=== PATIENT | female | born 1950 | race Caucasian/White ===

== ENCOUNTER → 2018-02-17 | Outpatient (CLI) | payer BC | END | disposition home or self-care (01) | LOC: CVU 08:03 | PROVIDERS: ATTEND Nurse Practitioner Family | DX: I07.1 Rheumatic tricuspid insufficiency (principal); I34.1 Nonrheumatic mitral (valve) prolapse | CPT/HCPCS: 93306 ==

== ENCOUNTER 2018-03-15 06:49 | Observation (INO) | payer BC ==
[~2018-03-15] VITALS: Ht 180.3 cm; Wt 80.6 kg
[2018-03-15] MEDS ORDERED: SODIUM CHLORIDE 0.9% 1,000 ML IV SCH (07:15)
[2018-03-15 07:24] VITALS: BP 139/84
[2018-03-15] MEDS ORDERED: CHOL2000 PO (07:33)
[2018-03-15 07:59] LABS: ALANINE AMINOTRANSFERASE 20 U/L (12-78); ALBUMIN 3.9 g/dL (3.4-5.0); ANION GAP 5 mmol/L (5-15); CALCIUM 9.2 mg/dL (8.5-10.1); CHLORIDE 109 mmol/L (98-107); CREATININE 0.74 mg/dL (0.55-1.02)
[2018-03-15 08:02] LABS: ALKALINE PHOSPHATASE 91 U/L (45-117); BILIRUBIN,TOTAL 0.4 mg/dL (0.2-1.0); TOTAL PROTEIN 7.5 g/dL (6.4-8.2)
[2018-03-15] MEDS ORDERED: MIDAZOLAM 1 MG/ML, 2ML ONE (09:45)
[2018-03-15] MEDS ORDERED: FENTANYL PF 100 MCG/2ML ONE (09:46)
[2018-03-15] MEDS ORDERED: MIDAZOLAM 1 MG/ML, 5ML ONE ×2 (10:16→10:39)
[2018-03-15] MEDS ORDERED: HEPARIN 1,000 UNITS/ML, 10ML ONE (10:31)
[2018-03-15] MEDS ORDERED: FENTANYL PF 250 MCG/5ML ONE (10:39)
[2018-03-15] MEDS ORDERED: DEXAMETHASONE 4 MG/ML, 1ML ONE (11:50)
[2018-03-15] MEDS ORDERED: ONDANSETRON 2MG/ML, 2ML ONE (11:50)
[2018-03-15] MEDS ORDERED: PROPOFOL 10 MG/ML, 50ML ONE (11:50)
[2018-03-15] MEDS ORDERED: ISOPROTERENOL 0.2MG/ML, 1ML ONE (11:50)
[2018-03-15] MEDS ORDERED: PHENYLEPHRINE 10 MG/ML ONE (11:50)
[2018-03-15] MEDS ORDERED: PROPOFOL 10 MG/ML, 20ML ONE (11:50)
[2018-03-15] MEDS ORDERED: ADENOSINE 6 MG/2 ML ONE (13:29)
[2018-03-15] MEDS ORDERED: PROTAMINE SULFATE 10 MG/ML, 5ML ONE (15:36)
[2018-03-15] MEDS ORDERED: APIXABAN 5 MG TABLET ONE (16:00)
[2018-03-15] MEDS ORDERED: ACETAMINOPHEN 325 MG TABLET PO PRN ×2 (16:00→16:30)
[2018-03-15] MEDS ORDERED: ONDANSETRON 2MG/ML, 2ML IVPush PRN (16:00)
[2018-03-15] MEDS ORDERED: APIXABAN 5 MG TABLET PO ONE (16:00)
[2018-03-15] MEDS ORDERED: DIPHENHYDRAMINE 50 MG/ML, 1ML IVPush PRN (16:30)
[2018-03-15] MEDS ORDERED: MEPERIDINE/PF 25MG/0.5ML IVPush PRN (16:30)
[2018-03-15] MEDS ORDERED: PROMETHAZINE 25 MG SUPP PR PRN (16:30)
[2018-03-15] MEDS ORDERED: FENTANYL PF 100 MCG/2ML IV PRN (16:30)
[2018-03-15] MEDS ORDERED: MIDAZOLAM 1 MG/ML, 2ML IV PRN (16:30)
[2018-03-15] MEDS ORDERED: MORPHINE SULFATE 4 MG/ML, 1ML IVPush PRN (16:30)
[2018-03-15] MEDS ORDERED: OXYcodone 5 MG/5 ML ORAL.SOL UDC PO PRN (16:30)
[2018-03-15] MEDS ORDERED: PROMETHAZINE 25 MG/ML, 1ML IV PRN (16:30)
[2018-03-15] MEDS ORDERED: ONDANSETRON ODT 8 MG PO PRN (16:30)
[2018-03-15] MEDS ORDERED: EPHEDRINE 50 MG/ML, 1ML IM PRN (16:30)
[2018-03-15] MEDS ORDERED: PROMETHAZINE 12.5 MG SUPP PR PRN (16:30)
[2018-03-15] MEDS ORDERED: ONDANSETRON 2MG/ML, 2ML IV PRN (16:30)
[2018-03-15 20:25] VITALS: BP 88/60
[2018-03-15] MEDS: METOPROLOL TARTRATE 25 MG TABLET PO SCH (21:00)
[2018-03-15] MEDS: APIXABAN 5 MG TABLET PO SCH (21:00)
[2018-03-15 23:16] VITALS: BP 93/70
[2018-03-16 01:36] VITALS: BP 88/60
[2018-03-16 01:37] VITALS: BP 94/62
[2018-03-16 04:52] LABS: ANION GAP 6 mmol/L (5-15); CALCIUM 7.9 mg/dL (8.5-10.1); CHLORIDE 112 mmol/L (98-107); CHOLESTEROL, TOTAL 132 mg/dL (140-239); CREATININE 0.73 mg/dL (0.55-1.02)
[2018-03-16 05:02] LABS: CHOL/HDL RATIO 2.4; FREE T4 (FREE THYROXINE) 1.08 ng/dL (0.76-1.46); HDL CHOL % 42 % (28-40); HDL CHOLESTEROL (DIRECT) 55 mg/dL (40-60); LDL CHOLESTEROL,CALCULATED 65 mg/dL (54-169); LDL/HDL RATIO 1.2 (0.5-3.0); THYROID STIMULATING HORMONE 0.597 mIU/L (0.358-3.740); TRIGLYCERIDES 59 mg/dL (50-200); VLDL CHOLESTEROL 12 mg/dL (0-25)
[2018-03-16] MEDS: METOPROLOL TARTRATE 25 MG TABLET PO SCH (06:00)
[2018-03-16 06:35] VITALS: BP 96/63
[2018-03-16] MEDS ORDERED: CHOLECALCIFEROL 1,000 UNIT TABLET PO SCH (09:00)
[2018-03-16] MEDS: APIXABAN 5 MG TABLET PO SCH (09:09)
[2018-03-16] MEDS ORDERED: APIX5TAB PO (09:38)
[2018-03-16] MEDS ORDERED: METO25TA35 PO (09:38)
[2018-03-16] MEDS ORDERED: ACET325T14 PO (09:38)
== END 2018-03-16 14:10 | disposition home or self-care (01) ==
LOC: EDBD → CACL 06:49 → ORIP 15:54 → 5SO 17:21 → DCLOUNGE 03-16 13:56
PROVIDERS: ADMIT Internal Medicine Cardiovascular Disease; ATTEND Internal Medicine Cardiovascular Disease
DX: I48.91 Unspecified atrial fibrillation (principal); I48.92 Unspecified atrial flutter; I47.1 Supraventricular tachycardia; Z79.01 Long term (current) use of anticoagulants
CPT/HCPCS: 36415; 71046; 80048; 80053; 80061; 84439; 84443; 84484; 85014; 85018; 85347; 93005; 93308; 93321; 93325; 93613; 93623; 93655; 93656; 93662; 99156; 99157; C1730; C1731; C1732; C1760; C1766; C1893; C1894; C2630; G0378; J0153; J1100; J1644; J2250; J2370; J2405; J2704; J2720; J3010; J3490; 93621

== ENCOUNTER 2018-07-28 10:39 | Day surgery (SDC) | payer BC ==
[~2018-07-28] VITALS: Ht 182.9 cm; Wt 84.1 kg
[~2018-07-28 10:39] MED LIST: ACET325T14 PO; APIX5TAB PO; CHOL2000 PO; METO25TA35 PO
[2018-07-28 11:26] VITALS: BP 117/88
[2018-07-28] MEDS ORDERED: SODIUM CHLORIDE 0.9% 1,000 ML IV SCH (11:30)
[2018-07-28] MEDS ORDERED: PLEASE ENTER HEIGHT AND WEIGHT MC SCH (11:30)
[2018-07-28 11:35] LABS: BASOPHILS # (AUTO) 0.03 x10^3/uL (0-0.1); BASOPHILS % (AUTO) 0 % (0-1); EOSINOPHILS # (AUTO) 0.05 x10^3/uL (0-0.4); EOSINOPHILS % (AUTO) 1 % (1-7); LYMPHOCYTES # (AUTO) 1.78 x10^3/uL (1-3.4); LYMPHOCYTES % (AUTO) 24 % (22-44); MD NO; MEAN CORPUSCULAR HEMOGLOBIN 29.2 pg (27.0-34.8); MEAN CORPUSCULAR HGB CONC 31.3 g/dL (32.4-35.8); MEAN CORPUSCULAR VOLUME 93.3 fL (80-100); MEAN PLATELET VOLUME 7.6 fL (7.4-10.4); MONOCYTES # (AUTO) 0.54 x10^3/uL (0.2-0.8); MONOCYTES % (AUTO) 7 % (2-9); NEUTROPHILS # (AUTO) 4.99 x10^3/uL (1.8-6.8); NEUTROPHILS % (AUTO) 68 % (42-75); PLATELET COUNT 278 x10^3/uL (130-400); RED BLOOD COUNT 4.43 x10^6/uL (3.82-5.3); RED CELL DISTRIBUTION WIDTH 13.8 % (9.6-15.2)
[2018-07-28 11:38] LABS: INTERNATIONAL NORMALIZED RATIO 1.1 (0.93-1.1); PROTHROMBIN TIME 11.5 Seconds (9.6-11.5)
[2018-07-28 11:44] LABS: ANION GAP 5 mmol/L (5-15); CALCIUM 8.9 mg/dL (8.5-10.1); CHLORIDE 112 mmol/L (98-107)
[2018-07-28 11:50] LABS: ALANINE AMINOTRANSFERASE 23 U/L (12-78); ALKALINE PHOSPHATASE 79 U/L (45-117); BILIRUBIN,TOTAL 0.8 mg/dL (0.2-1.0); CREATININE 0.74 mg/dL (0.55-1.02); TOTAL PROTEIN 7.5 g/dL (6.4-8.2)
[2018-07-28] MEDS ORDERED: PROPOFOL 10 MG/ML, 20ML ONE (12:05)
== END 2018-07-28 13:25 | disposition home or self-care (01) ==
LOC: CACL 10:39
PROVIDERS: ATTEND Internal Medicine Cardiovascular Disease
DX: I48.91 Unspecified atrial fibrillation (principal); I48.4 Atypical atrial flutter; I07.1 Rheumatic tricuspid insufficiency; Q21.1 Atrial septal defect; Z79.01 Long term (current) use of anticoagulants; Z79.899 Other long term (current) drug therapy; Z98.890 Other specified postprocedural states
CPT/HCPCS: 36415; 80053; 85025; 85610; 92960; 93312; 93321; 93325; J2704

== ENCOUNTER 2018-10-05 15:30 | Outpatient (CLI) | payer BC | END 2018-10-05 23:59 | disposition home or self-care (01) | LOC: CVU 15:30 → EDSTATUS 10-13 14:00 | PROVIDERS: ATTEND Nurse Practitioner Family | DX: I08.1 Rheumatic disorders of both mitral and tricuspid valves (principal); I48.91 Unspecified atrial fibrillation | CPT/HCPCS: 0399T; 93306 ==

== ENCOUNTER 2019-01-04 06:45 | Observation (INO) | payer BC ==
[~2019-01-04] VITALS: Ht 182.9 cm; Wt 91.2 kg
[2019-01-04] MEDS ORDERED: SODIUM CHLORIDE 0.9% 1,000 ML IV SCH (07:17)
[2019-01-04 07:27] VITALS: BP 131/95
[2019-01-04] MEDS ORDERED: MIDAZOLAM 1 MG/ML, 2ML ONE (07:27)
[2019-01-04] MEDS ORDERED: FENTANYL PF 250 MCG/5ML ONE (07:27)
[2019-01-04] MEDS ORDERED: PROPOFOL 50 ML ONE (07:27)
[2019-01-04] MEDS ORDERED: SODIUM CHLORIDE 0.9% 1,000 ML IV ONE (07:30)
[2019-01-04] MEDS ORDERED: SUCCINYLCHOLINE 20 MG/ML, 10ML ONE (08:16)
[2019-01-04] MEDS ORDERED: DEXAMETHASONE 4 MG/ML, 1ML ONE (08:16)
[2019-01-04] MEDS ORDERED: ONDANSETRON 2MG/ML, 2ML ONE (08:16)
[2019-01-04] MEDS ORDERED: LIDOCAINE 2%, 20ML ONE (08:29)
[2019-01-04] MEDS ORDERED: HEPARIN 1,000 UNITS/ML, 10ML ONE ×3 (09:22)
[2019-01-04] MEDS ORDERED: ROCURONIUM 10MG/ML,5ML ONE (09:22)
[2019-01-04] MEDS: APIXABAN 5 MG TABLET PO SCH ×2 (11:30→20:43)
[2019-01-04] MEDS ORDERED: APIXABAN 5 MG TABLET ONE (11:55)
[2019-01-04 12:31] VITALS: BP 98/71
[2019-01-04] MEDS: ACETAMINOPHEN 325 MG TABLET PO PRN ×2 (14:00→20:43)
[2019-01-04 18:45] VITALS: BP 113/67
[2019-01-04] MEDS: COLCHICINE 0.6 MG CAPSULE PO SCH (20:43)
[2019-01-05 00:32] VITALS: BP 113/75
[2019-01-05 06:40] VITALS: BP 114/77
[2019-01-05] MEDS ORDERED: APIX5TAB PO (09:34)
[2019-01-05] MEDS ORDERED: COLC0.6C3 PO (09:34)
[2019-01-05] MEDS: COLCHICINE 0.6 MG CAPSULE PO SCH (09:35)
[2019-01-05] MEDS: APIXABAN 5 MG TABLET PO SCH (09:35)
== END 2019-01-05 11:07 | disposition home or self-care (01) ==
LOC: CACL 06:45 → ORIP 11:02 → 5SO 12:37 → DCLOUNGE 01-05 10:56
PROVIDERS: ADMIT Internal Medicine Cardiovascular Disease; ATTEND Internal Medicine Cardiovascular Disease
DX: I48.91 Unspecified atrial fibrillation (principal); I48.4 Atypical atrial flutter
CPT/HCPCS: 85347; 93005; 93308; 93312; 93321; 93325; 93613; 93655; 93656; 93657; 93662; C1730; C1732; C1759; C1766; C1893; C1894; G0378; J0330; J1100; J1644; J2250; J2405; J2704; J3010; J3490

== ENCOUNTER → 2019-07-12 | Outpatient (CLI) | payer BC, OTHER ==
[~2019-07-12] MED LIST changes: +COLC0.6C3 PO
== END | disposition home or self-care (01) ==
LOC: CFH 08:48
PROVIDERS: ATTEND Nurse Practitioner Family
DX: I08.8 Other rheumatic multiple valve diseases (principal); I48.92 Unspecified atrial flutter
CPT/HCPCS: 93306

== ENCOUNTER → 2020-07-11 | Outpatient (CLI) | payer OTHER | END | disposition home or self-care (01) | LOC: CFH 10:56 → EDSTATUS 11:15 | PROVIDERS: ATTEND Internal Medicine Cardiovascular Disease | DX: I08.1 Rheumatic disorders of both mitral and tricuspid valves (principal); I48.92 Unspecified atrial flutter | CPT/HCPCS: 93306 ==